=== PATIENT | male | born 1990 | race Hispanic/Latino ===

== ENCOUNTER 2017-04-15 18:49 | Emergency (ER) | payer SELFPAY ==
[2017-04-15 20:37] LABS: Bilirubin,Urine NEG (Negative); Blood,Urine MOD (Negative); Ketones,Urine NEG (Negative); Leukocyte Esterase,Urine TR (Negative); Mucus,Urine 2+ /HPF; Nitrite,Urine NEG (Negative); Urobilinogen,Urine < 2.0 mg/dL (<2.0)
[2017-04-15 20:43] LABS: Alanine Aminotransferase 11 units/L (7-56); Albumin 4.9 g/dL (3.9-5); Albumin/Globulin Ratio 2.1 %; Alkaline Phosphatase 46 units/L (35-129); Anion Gap 18 mmol/L; BUN/Creatinine Ratio 12.72; Blood Urea Nitrogen 14 mg/dL (9-20); Calcium 9.2 mg/dL (8.4-10.2); Carbon Dioxide 28 mmol/L (22-30); Chloride 103.1 mmol/L (98-107); Glucose 55 mg/dL (75-100); Lipase 28 units/L (13-60); Potassium 4.5 mmol/L (3.6-5.0); Sodium 145 mmol/L (137-145); Total Protein 7.2 g/dL (6.3-8.2)
[2017-04-15 20:45] LABS: Basophils % (Auto) 0.4 % (0.0-1.8); Eosinophils % (Auto) 3.6 % (0.0-4.3); Hematocrit 49.6 % (35.5-45.6); Hemoglobin 17.2 gm/dl (11.8-15.2); Mean Corpuscular HGB Conc 35 % (32-34); Mean Corpuscular Hemoglobin 31 pg (28-32); Mean Corpuscular Volume 89 fl (84-94); Platelet Count 246 K/mm3 (140-440); Red Cell Distribution Width 13.2 % (13.2-15.2); White Blood Count 7.8 K/mm3 (4.5-11.0)
[2017-04-16 05:50] VITALS: BP 102/66
[2017-04-16] MEDS ORDERED: NACL 0.9% 1000 ML 1,000 ML IV ONE (06:18)
--- NOTE | 2017-04-16 06:21 | Emergency Department Report ---
HPI - General Chief Complaint: Abdominal Pain Time Seen by Provider: 04/16/17 06:16 - HPI HPI: Complaint: Abdominal pain This is a 26-year-old white male who presents to the ED with abdominal discomfort, located in his bilateral flank area, 10 out of 10. States pain is worse when he urinates and his urine is dark colored. Patient also stated that he is feeling depressed but does not have any suicidal ideation. Patient states symptoms have been going on for the last few months but worse this past week. ED Past Medical Hx - Past Medical History Previous Medical History?: No - Social History Smoking Status: Never Smoker - Medications Home Medications: Home Medications Medication Instructions Recorded Confirmed Last Taken Type Ketorolac [Toradol] 10 mg PO Q6H PRN #14 tablet 04/16/17 Unknown Rx Tamsulosin [Flomax] 0.4 mg PO QDAY #7 cap 04/16/17 Unknown Rx buPROPion [Wellbutrin] 75 mg PO BID #60 tab 04/16/17 Unknown Rx ED Review of Systems ROS: Stated complaint: WEIGHT LOSS/KIDNEY PAIN Other details as noted in HPI Comment: All other systems reviewed and negative Gastrointestinal: abdominal pain Physical Exam - Physical Exam Vital Signs: Vital Signs 04/15/17 04/16/17 04/16/17 19:23 02:03 03:26 Temperature 97.6 F 97.6 F 97.5 F L Pulse Rate 59 L 51 L 55 L Respiratory 18 18 18 Rate Blood Pressure 106/68 108/68 Blood Pressure 116/66 [Left] O2 Sat by Pulse 99 100 99 Oximetry 04/16/17 05:49 Temperature Pulse Rate 55 L Respiratory 18 Rate Blood Pressure Blood Pressure 102/66 [Left] O2 Sat by Pulse 100 Oximetry Physical Exam: Gen. alert and oriented 3 in no distress Head atraumatic normocephalic Eyes PERR LA EOMI Chest regular rate and rhythm normal S1-S2 lungs clear bilaterally Abdomen soft nondistended Back no point tenderness paravertebral tenderness Neuro no focal deficit. Psych normal mood. ED Course Vital Signs 04/15/17 04/16/17 04/16/17 19:23 02:03 03:26 Temperature 97.6 F 97.6 F 97.5 F L Pulse Rate 59 L 51 L 55 L Respiratory 18 18 18 Rate Blood Pressure 106/68 108/68 Blood Pressure 116/66 [Left] O2 Sat by Pulse 99 100 99 Oximetry 04/16/17 05:49 Temperature Pulse Rate 55 L Respiratory 18 Rate Blood Pressure Blood Pressure 102/66 [Left] O2 Sat by Pulse 100 Oximetry ED Medical Decision Making - Lab Data Result diagrams: 04/15/17 19:53 04/15/17 19:53 Critical care attestation.: If time is entered above; I have spent that time in minutes in the direct care of this critically ill patient, excluding procedure time. ED Disposition Clinical Impression: Kidney stone, Depression (emotion) Disposition: DC-01 TO HOME OR SELFCARE Is pt being admited?: No Does the pt Need Aspirin: No Condition: Stable Instructions: Kidney Stones (ED), Depression (ED) Prescriptions: buPROPion [Wellbutrin] 75 mg PO BID #60 tab Ketorolac [Toradol] 10 mg PO Q6H PRN #14 tablet PRN Reason: Pain Tamsulosin [Flomax] 0.4 mg PO QDAY #7 cap Referrals: LUDWIG PINO MD [Referring] - 3-5 Days RANDY GUNDERSON MD [Staff Physician] - 3-5 Days PRIMARY CAREMD [Primary Care Provider] - 3-5 Days
--- NOTE | 2017-04-16 09:42 | Cat Scan Report ---
FINAL REPORT PROCEDURE: CT ABDOMEN PELVIS WO CON TECHNIQUE: Computerized axial tomography of the abdomen and pelvis was performed without intravenous contrast. This study is performed without intravascular contrast material and its sensitivity for abdominal and pelvic pathology, including neoplasms, inflammation, abscess, free fluid, thrombosis, arterial dissection and infarction, is reduced compared with a contrast enhanced study. HISTORY: abd pain COMPARISON: None FINDINGS: Visualized lower thorax: No significant abnormality. Liver: Normal size and attenuation. Spleen: Normal size and attenuation. Gallbladder and biliary system: Gallbladder wall may be slightly thickened. Pancreas: Normal. Adrenals: Normal. Kidneys: Normal right kidney. 8 millimeter lower pole left renal calculus. GI tract: No bowel obstruction. No gross focal lesion. Normal appendix. Lymph nodes and mesentery: Normal. Vasculature: Normal. Bladder: Normal. Reproductive organs: Normal. Peritoneum: No free fluid. Musculoskeletal structures: No significant abnormality. Other: None. IMPRESSION: Subtle gallbladder wall thickening is not excluded possibly due to incomplete distension. If subtle cholecystitis is of concern consider nuclear medicine hepatobiliary scan and ultrasound for further evaluation. 8 millimeter lower pole left renal calculus. No hydronephrosis.
== END 2017-04-16 10:08 | disposition home or self-care (01) ==
LOC: ED 18:49
DX: N20.0 Calculus of kidney (principal); F32.9 Major depressive disorder, single episode, unspecified
CPT/HCPCS: 36415; 74176; 80053; 81001; 82962; 83690; 85025; J7030

== ENCOUNTER 2020-10-16 14:29 | Emergency (ER) | payer SELFPAY ==
[2020-10-16 14:33] VITALS: BP 137/84
[2020-10-16 16:05] LABS: Basophils % (Auto) 0.7 % (0.0-1.8); Eosinophils # (Auto) 0.2 K/mm3 (0.0-0.4); Eosinophils % (Auto) 2.8 % (0.0-4.3); Hematocrit 46.7 % (35.5-45.6); Hemoglobin 16.3 gm/dl (11.8-15.2); Lymphocytes # (Auto) 1.7 K/mm3 (1.2-5.4); Lymphocytes % (Auto) 24.9 % (13.4-35.0); Mean Corpuscular HGB Conc 35 % (32-34); Mean Corpuscular Volume 89 fl (84-94); Monocytes # (Auto) 0.5 K/mm3 (0.0-0.8); Monocytes % (Auto) 7.1 % (0.0-7.3); Platelet Count 243 K/mm3 (140-440); Red Blood Count 5.22 M/mm3 (3.65-5.03); Red Cell Distribution Width 13.6 % (13.2-15.2)
--- NOTE | 2020-10-16 16:24 | Emergency Department Report ---
ED General Adult HPI - General Chief complaint: Weakness Stated complaint: WEAK/FAINT Time Seen by Provider: 10/16/20 15:23 Source: patient Mode of arrival: Ambulatory Limitations: No Limitations - History of Present Illness Initial comments: Patient is a 30-year-old male presents emergency room with complaints of lightheadedness, generalized weakness, fatigue that began a few days ago. He does not have a primary care doctor. He states that he was incarcerated for 3 years and just recently released. He denies any nausea, vomiting, diarrhea, fever, chills, cough, chest pain, shortness of breath, urinary symptoms, vision changes, numbness, weakness, headache. No past medical history. No allergies to medications. He states he is a non-smoker and denies drug use. He endorses occasional alcohol use. He denies any SI or HI. - Related Data Previous Rx's Medication Instructions Recorded Last Taken Type Ketorolac [Toradol] 10 mg PO Q6H PRN #14 tablet 04/16/17 Unknown Rx Tamsulosin [Flomax] 0.4 mg PO QDAY #7 cap 04/16/17 Unknown Rx buPROPion [Wellbutrin] 75 mg PO BID #60 tab 04/16/17 Unknown Rx Allergies Allergy/AdvReac Type Severity Reaction Status Date / Time No Known Allergies Allergy Unverified 04/15/17 19:21 ED Review of Systems ROS: Stated complaint: WEAK/FAINT Other details as noted in HPI Comment: All other systems reviewed and negative ED Past Medical Hx - Past Medical History Previous Medical History?: No - Surgical History Past Surgical History?: No - Social History Smoking Status: Never Smoker Substance Use Type: None - Medications Home Medications: Home Medications Medication Instructions Recorded Confirmed Last Taken Type Ketorolac [Toradol] 10 mg PO Q6H PRN #14 tablet 04/16/17 Unknown Rx Tamsulosin [Flomax] 0.4 mg PO QDAY #7 cap 04/16/17 Unknown Rx buPROPion [Wellbutrin] 75 mg PO BID #60 tab 04/16/17 Unknown Rx ED Physical Exam - General Limitations: No Limitations General appearance: alert, in no apparent distress - Head Head exam: Present: atraumatic, normocephalic - Eye Eye exam: Present: normal appearance - ENT ENT exam: Present: mucous membranes moist - Respiratory Respiratory exam: Present: normal lung sounds bilaterally. Absent: respiratory distress, wheezes, rales, rhonchi, stridor, chest wall tenderness, accessory muscle use, decreased breath sounds, prolonged expiratory - Cardiovascular Cardiovascular Exam: Present: regular rate, normal rhythm, normal heart sounds. Absent: systolic murmur, diastolic murmur, rubs, gallop - Neurological Exam Neurological exam: Present: alert, oriented X3, CN II-XII intact, normal gait. Absent: motor sensory deficit - Psychiatric Psychiatric exam: Present: normal affect, normal mood - Skin Skin exam: Present: warm, dry, intact ED Course Vital Signs 10/16/20 14:32 Temperature 97.9 F Pulse Rate 92 H Respiratory 18 Rate Blood Pressure 137/84 O2 Sat by Pulse 98 Oximetry ED Medical Decision Making - Lab Data Result diagrams: 10/16/20 15:32 10/16/20 15:32 Lab Results 10/16/20 10/16/20 10/16/20 Range/Units 15:32 15:32 16:05 WBC 6.8 (4.5-11.0) K/mm3 RBC 5.22 H (3.65-5.03) M/mm3 Hgb 16.3 H (11.8-15.2) gm/dl Hct 46.7 H (35.5-45.6) % MCV 89 (84-94) fl MCH 31 (28-32) pg MCHC 35 H (32-34) % RDW 13.6 (13.2-15.2) % Plt Count 243 (140-440) K/mm3 Lymph % (Auto) 24.9 (13.4-35.0) % [place] % (Auto) 7.1 (0.0-7.3) % Eos % (Auto) 2.8 (0.0-4.3) % Baso % (Auto) 0.7 (0.0-1.8) % Lymph # (Auto) 1.7 (1.2-5.4) K/mm3 [place] # (Auto) 0.5 (0.0-0.8) K/mm3 Eos # (Auto) 0.2 (0.0-0.4) K/mm3 Baso # (Auto) 0.0 (0.0-0.1) K/mm3 Seg Neutrophils % 64.5 (40.0-70.0) % Seg Neutrophils # 4.4 (1.8-7.7) K/mm3 Sodium 141 (137-145) mmol/L Potassium 4.4 (3.6-5.0) mmol/L Chloride 100.8 (98-107) mmol/L Carbon Dioxide 33 H (22-30) mmol/L Anion Gap 12 mmol/L BUN 5 L (9-20) mg/dL Creatinine 0.8 (0.8-1.3) mg/dL Estimated GFR > 60 ml/min BUN/Creatinine Ratio 6 % Glucose 78 (75-100) mg/dL Calcium 9.3 (8.4-10.2) mg/dL Magnesium 2.10 (1.7-2.3) mg/dL Total Bilirubin 0.80 (0.1-1.2) mg/dL AST 46 H (5-40) units/L ALT 99 H (7-56) units/L Alkaline Phosphatase 58 (35-129) units/L Total Creatine Kinase 104 (55-170) units/L Total Protein 6.8 (6.3-8.2) g/dL Albumin 4.7 (3.9-5) g/dL Albumin/Globulin Ratio 2.2 % Urine Color Straw (Yellow) Urine Turbidity Clear (Clear) Urine pH 7.0 (5.0-7.0) Ur Specific [place] 1.004 (1.003-1.030) Urine Protein <15 mg/dl (Negative) mg/dL Urine Glucose (UA) Neg (Negative) mg/dL Urine Ketones Neg (Negative) mg/dL Urine Blood Neg (Negative) Urine Nitrite Neg (Negative) Urine Bilirubin Neg (Negative) Urine Urobilinogen < 2.0 (<2.0) mg/dL Ur Leukocyte Esterase Neg (Negative) Urine WBC (Auto) 1.0 (0.0-6.0) /HPF Urine RBC (Auto) 1.0 (0.0-6.0) /HPF - EKG Data EKG shows normal: sinus rhythm, intervals Rate: normal - EKG Data 10/16/20 16:[address] elevation from early repolarization no STEMI - Medical Decision Making Patient is a 30-year-old male presents emergency room with complaints of lightheadedness, generalized weakness, fatigue that began a few days ago. He does not have a primary care doctor. He states that he was incarcerated for 3 years and just recently released. He denies any nausea, vomiting, diarrhea, fever, chills, cough, chest pain, shortness of breath, urinary symptoms, vision changes, numbness, weakness, headache. No past medical history. No allergies to medications. He states he is a non-smoker and denies drug use. He endorses occasional alcohol use. He denies any SI or HI. VSS. No abnormality on physical examination as documented in chart. Labs with mild elevation of ALT and AST, otherwise stable. UA is within normal limits. EKG RAD, ST elevation from early repolarization, no STEMI. Discussed all results with patient and answered questions. Advised patient Please increase your water intake. You have a mild elevation in your liver numbers, avoid alcohol use, drug use, Tylenol use. Follow-up with a primary care doctor. Return to emergency room f or any new or worsening symptoms. - Differential Diagnosis Dehydration, JAVIER, rhabdo, UTI, electrolyte disturbance, arrhythmia, anemia Critical care attestation.: If time is entered above; I have spent that time in minutes in the direct care of this critically ill patient, excluding procedure time. ED Disposition Clinical Impression: Lightheaded, Generalized weakness, LFT elevation Fatigue Qualifiers: Fatigue type: unspecified Qualified Code(s): R53.83 - Other fatigue Disposition: DC-01 TO HOME OR SELFCARE Is pt being admited?: No Does the pt Need Aspirin: No Condition: Stable Instructions: Weakness Additional Instructions: Please increase your water intake. You have a mild elevation in your liver numbers, avoid alcohol use, drug use, Tylenol use. Follow-up with a primary care doctor. Return to emergency room for any new or worsening symptoms. Referrals: LANDON ANTHONY MD [Primary Care Provider] - 2-3 Days MEENAKSHI CAT MD [Staff Physician] - 2-3 Days [facility] [Provider Group] - 2-3 Days [facility], [LAB/CONTRACT] - 2-3 Days Time of Disposition: 16:29 Print Language: CROATIAN
[2020-10-16 16:25] LABS: Bilirubin,Urine NEG (Negative); Blood,Urine NEG (Negative); Color,Urine Straw (Yellow); Protein,Urine <15 mg/dL mg/dL (Negative); Urobilinogen,Urine < 2.0 mg/dL (<2.0)
[2020-10-16 16:25] LABS: Alanine Aminotransferase 99 units/L (7-56); Albumin 4.7 g/dL (3.9-5); BUN/Creatinine Ratio 6; Blood Urea Nitrogen 5 mg/dL (9-20); Calcium 9.3 mg/dL (8.4-10.2); Hemolysis Index 25
== END 2020-10-16 16:51 | disposition home or self-care (01) ==
LOC: ED 14:29
DX: R42 Dizziness and giddiness (principal); R35.0 Frequency of micturition; R53.83 Other fatigue; R94.5 Abnormal results of liver function studies; Z79.899 Other long term (current) drug therapy
CPT/HCPCS: 36415; 80053; 81001; 82550; 83735; 85025; 93005; 99283